=== PATIENT | male | born 1960 | race Caucasian/White ===

== ENCOUNTER 2016-11-06 08:47 | Day surgery (SDC) | payer OTHER ==
[~2016-11-06] VITALS: Ht 180.3 cm; Wt 56.9 kg
[~2016-11-06 08:47] MED LIST: SYMBICORT 16010.2 GM INH
== END 2016-11-06 12:00 | disposition disaster alternative care site (69) ==
LOC: GEND 08:47 → GPOC 09:00 → GEND 12:00 → GPOC 13:00
PROC: 0DBP8ZX Excision of Rectum, Via Natural or Artificial Opening Endoscopic, Diagnostic (ICD-10-PCS; principal; 2016-11-06)
DX: Z12.11 Encounter for screening for malignant neoplasm of colon (principal); K63.5 Polyp of colon; K64.4 Residual hemorrhoidal skin tags; K57.30 Diverticulosis of large intestine without perforation or abscess without bleeding; J45.909 Unspecified asthma, uncomplicated; F17.210 Nicotine dependence, cigarettes, uncomplicated
CPT/HCPCS: J2001; J7030